=== PATIENT | female | born 1990 | race Caucasian/White ===

== ENCOUNTER 2022-01-11 16:06 | Outpatient (CLI) | payer OTHER, SELFPAY ==
[2022-01-11 21:10] LABS: Vitamin D 25 Hydroxy* 37 ng/mL (30-80)
[2022-01-11 21:23] LABS: TSH With Reflex to FT4* 0.761 uIU/mL (0.270-4.200)
== END 2022-01-11 16:07 | disposition home or self-care (01) ==
LOC: RAD 16:13
PROVIDERS: PCP Family Medicine; Visit Provider Registered Nurse
DX: R10.2 Pelvic and perineal pain (principal); N93.9 Abnormal uterine and vaginal bleeding, unspecified; R53.83 Other fatigue
CPT/HCPCS: 36415; 82306; 84443; 87086